=== PATIENT | male | born 1940 | race Caucasian/White ===

== ENCOUNTER → 2017-03-30 | Outpatient (CLI) | payer MEDICARE, OTHER ==
[~2017-03-30] MED LIST: ACTICIN 5% CREA60 G1 TOP; ALDACTONE50 MG PO; AMBIEN 5 MG TABL5 M1 PO; ASPIR 8181 MG PO; AUGMENTIN 875875 MG PO; CEFPODOXIME PR200 M1 PO; GABAPENTIN100 MG PO; HYDROXYZINE HCL25 M1 PO; IPRAT-ALBUT 0.5-3 ML INH; LASIX 40 MG TAB40 M2 PO; LEVAQUIN 250 M250 MG PO; LEVAQUIN 500 M500 M2 PO; LORATIDINE 10 M10 M1 PO; MEDROLDOSEPACK PO; MELOXICAM15 MG PO; METFORMIN HCL500 MG PO; METOPROLOL SUCC50 MG PO; MUCINEX TA600 MG/TA2 PO; NEBULIZER MISCELL; NEURONTIN 300300 M1 PO; PREDNISONE 10 M10 MG PO; PROBIOTIC1 EAC1 PO; PROTONIX40 M1 PO; SIMVASTATIN40 MG PO; SYMBICORT160 MCG/4. INH; TRIAMCINOLONE A80 G2 TOP; TRIAMTERENE-HC1 EAC1 PO; TYLENOL EXTRA500 MG PO
== END ==
LOC: M.WC 01:31
DX: E11.622 Type 2 diabetes mellitus with other skin ulcer (principal); I87.333 Chronic venous hypertension (idiopathic) with ulcer and inflammation of bilateral lower extremity; L97.811 Non-pressure chronic ulcer of other part of right lower leg limited to breakdown of skin; L97.821 Non-pressure chronic ulcer of other part of left lower leg limited to breakdown of skin; E11.51 Type 2 diabetes mellitus with diabetic peripheral angiopathy without gangrene; E78.2 Mixed hyperlipidemia; I10 Essential (primary) hypertension; J44.9 Chronic obstructive pulmonary disease, unspecified; G47.00 Insomnia, unspecified; Z87.891 Personal history of nicotine dependence

== ENCOUNTER → 2017-04-07 | Outpatient (CLI) | payer MEDICARE, BC | LOC: M.WC 02:22 | DX: E11.622 Type 2 diabetes mellitus with other skin ulcer (principal); I87.333 Chronic venous hypertension (idiopathic) with ulcer and inflammation of bilateral lower extremity; L97.811 Non-pressure chronic ulcer of other part of right lower leg limited to breakdown of skin; L97.821 Non-pressure chronic ulcer of other part of left lower leg limited to breakdown of skin; E11.51 Type 2 diabetes mellitus with diabetic peripheral angiopathy without gangrene; E78.2 Mixed hyperlipidemia; J44.9 Chronic obstructive pulmonary disease, unspecified; G47.00 Insomnia, unspecified; Z87.891 Personal history of nicotine dependence ==

== ENCOUNTER → 2017-04-14 | Outpatient (CLI) | payer MEDICARE, BC | LOC: M.WC 01:21 | DX: E11.622 Type 2 diabetes mellitus with other skin ulcer (principal); I87.333 Chronic venous hypertension (idiopathic) with ulcer and inflammation of bilateral lower extremity; L97.821 Non-pressure chronic ulcer of other part of left lower leg limited to breakdown of skin; L97.811 Non-pressure chronic ulcer of other part of right lower leg limited to breakdown of skin; E11.51 Type 2 diabetes mellitus with diabetic peripheral angiopathy without gangrene; E78.2 Mixed hyperlipidemia; G47.00 Insomnia, unspecified; J44.9 Chronic obstructive pulmonary disease, unspecified; E66.9 Obesity, unspecified; Z68.38 Body mass index [BMI] 38.0-38.9, adult; Z87.891 Personal history of nicotine dependence ==

== ENCOUNTER → 2017-04-21 | Outpatient (CLI) | payer MEDICARE, BC | LOC: M.WC 01:36 | DX: E11.622 Type 2 diabetes mellitus with other skin ulcer (principal); L97.821 Non-pressure chronic ulcer of other part of left lower leg limited to breakdown of skin; L97.811 Non-pressure chronic ulcer of other part of right lower leg limited to breakdown of skin; E11.51 Type 2 diabetes mellitus with diabetic peripheral angiopathy without gangrene; I87.333 Chronic venous hypertension (idiopathic) with ulcer and inflammation of bilateral lower extremity; E78.2 Mixed hyperlipidemia; J44.9 Chronic obstructive pulmonary disease, unspecified; Z68.38 Body mass index [BMI] 38.0-38.9, adult; Z86.711 Personal history of pulmonary embolism; Z87.891 Personal history of nicotine dependence ==

== ENCOUNTER → 2017-04-28 | Outpatient (CLI) | payer MEDICARE, BC | LOC: M.WC 01:49 | DX: E11.622 Type 2 diabetes mellitus with other skin ulcer (principal); I87.333 Chronic venous hypertension (idiopathic) with ulcer and inflammation of bilateral lower extremity; L97.821 Non-pressure chronic ulcer of other part of left lower leg limited to breakdown of skin; L97.811 Non-pressure chronic ulcer of other part of right lower leg limited to breakdown of skin; E11.51 Type 2 diabetes mellitus with diabetic peripheral angiopathy without gangrene; E78.2 Mixed hyperlipidemia; J44.9 Chronic obstructive pulmonary disease, unspecified; Z87.891 Personal history of nicotine dependence ==

== ENCOUNTER → 2017-05-05 | Outpatient (CLI) | payer MEDICARE, BC | LOC: M.WC 01:41 | DX: E11.622 Type 2 diabetes mellitus with other skin ulcer (principal); L97.811 Non-pressure chronic ulcer of other part of right lower leg limited to breakdown of skin; L97.821 Non-pressure chronic ulcer of other part of left lower leg limited to breakdown of skin; I87.333 Chronic venous hypertension (idiopathic) with ulcer and inflammation of bilateral lower extremity; E11.51 Type 2 diabetes mellitus with diabetic peripheral angiopathy without gangrene; E78.2 Mixed hyperlipidemia; J44.9 Chronic obstructive pulmonary disease, unspecified; Z68.38 Body mass index [BMI] 38.0-38.9, adult; Z87.891 Personal history of nicotine dependence ==

== ENCOUNTER → 2017-05-12 | Outpatient (CLI) | payer MEDICARE, BC | LOC: M.WC 01:30 | DX: E11.622 Type 2 diabetes mellitus with other skin ulcer (principal); I87.333 Chronic venous hypertension (idiopathic) with ulcer and inflammation of bilateral lower extremity; L97.821 Non-pressure chronic ulcer of other part of left lower leg limited to breakdown of skin; L97.811 Non-pressure chronic ulcer of other part of right lower leg limited to breakdown of skin; E11.51 Type 2 diabetes mellitus with diabetic peripheral angiopathy without gangrene; E78.2 Mixed hyperlipidemia; G47.00 Insomnia, unspecified; J44.9 Chronic obstructive pulmonary disease, unspecified; E66.9 Obesity, unspecified; Z68.38 Body mass index [BMI] 38.0-38.9, adult; Z87.891 Personal history of nicotine dependence ==

== ENCOUNTER → 2017-05-19 | Outpatient (CLI) | payer MEDICARE, BC | LOC: M.WC 00:54 | DX: E11.622 Type 2 diabetes mellitus with other skin ulcer (principal); I87.333 Chronic venous hypertension (idiopathic) with ulcer and inflammation of bilateral lower extremity; L97.811 Non-pressure chronic ulcer of other part of right lower leg limited to breakdown of skin; L97.821 Non-pressure chronic ulcer of other part of left lower leg limited to breakdown of skin; E11.51 Type 2 diabetes mellitus with diabetic peripheral angiopathy without gangrene; E78.2 Mixed hyperlipidemia; J44.9 Chronic obstructive pulmonary disease, unspecified; G47.00 Insomnia, unspecified; Z87.891 Personal history of nicotine dependence ==

== ENCOUNTER → 2017-05-26 | Outpatient (CLI) | payer MEDICARE, BC | LOC: M.WC 00:38 | DX: E11.622 Type 2 diabetes mellitus with other skin ulcer (principal); L97.821 Non-pressure chronic ulcer of other part of left lower leg limited to breakdown of skin; L97.811 Non-pressure chronic ulcer of other part of right lower leg limited to breakdown of skin; I87.333 Chronic venous hypertension (idiopathic) with ulcer and inflammation of bilateral lower extremity; E11.51 Type 2 diabetes mellitus with diabetic peripheral angiopathy without gangrene; E78.2 Mixed hyperlipidemia; J44.9 Chronic obstructive pulmonary disease, unspecified; G47.00 Insomnia, unspecified; Z87.891 Personal history of nicotine dependence ==

== ENCOUNTER → 2017-06-02 | Outpatient (CLI) | payer MEDICARE, BC | LOC: M.WC 01:32 | DX: I87.333 Chronic venous hypertension (idiopathic) with ulcer and inflammation of bilateral lower extremity (principal); L97.821 Non-pressure chronic ulcer of other part of left lower leg limited to breakdown of skin; L97.811 Non-pressure chronic ulcer of other part of right lower leg limited to breakdown of skin; E11.51 Type 2 diabetes mellitus with diabetic peripheral angiopathy without gangrene; E78.2 Mixed hyperlipidemia; I10 Essential (primary) hypertension; G47.00 Insomnia, unspecified; J44.9 Chronic obstructive pulmonary disease, unspecified; Z87.891 Personal history of nicotine dependence ==

== ENCOUNTER → 2017-06-09 | Outpatient (CLI) | payer MEDICARE, BC | LOC: M.WC 01:49 | DX: E11.622 Type 2 diabetes mellitus with other skin ulcer (principal); L97.821 Non-pressure chronic ulcer of other part of left lower leg limited to breakdown of skin; L97.811 Non-pressure chronic ulcer of other part of right lower leg limited to breakdown of skin; I87.333 Chronic venous hypertension (idiopathic) with ulcer and inflammation of bilateral lower extremity; S81.801D Unspecified open wound, right lower leg, subsequent encounter; E11.51 Type 2 diabetes mellitus with diabetic peripheral angiopathy without gangrene; E78.2 Mixed hyperlipidemia; G47.00 Insomnia, unspecified; J44.9 Chronic obstructive pulmonary disease, unspecified; Z68.38 Body mass index [BMI] 38.0-38.9, adult; Z87.891 Personal history of nicotine dependence; X58.XXXD Exposure to other specified factors, subsequent encounter ==

== ENCOUNTER → 2017-06-16 | Outpatient (CLI) | payer MEDICARE, BC | LOC: M.WC 01:34 | DX: I87.331 Chronic venous hypertension (idiopathic) with ulcer and inflammation of right lower extremity (principal); E11.622 Type 2 diabetes mellitus with other skin ulcer; L97.811 Non-pressure chronic ulcer of other part of right lower leg limited to breakdown of skin; E11.51 Type 2 diabetes mellitus with diabetic peripheral angiopathy without gangrene; E78.2 Mixed hyperlipidemia; J44.9 Chronic obstructive pulmonary disease, unspecified; G47.00 Insomnia, unspecified; Z68.38 Body mass index [BMI] 38.0-38.9, adult; Z87.891 Personal history of nicotine dependence ==

== ENCOUNTER → 2017-06-23 | Outpatient (CLI) | payer MEDICARE, BC | LOC: M.WC 01:28 | DX: E11.622 Type 2 diabetes mellitus with other skin ulcer (principal); I87.311 Chronic venous hypertension (idiopathic) with ulcer of right lower extremity; L97.811 Non-pressure chronic ulcer of other part of right lower leg limited to breakdown of skin; E11.51 Type 2 diabetes mellitus with diabetic peripheral angiopathy without gangrene; E78.2 Mixed hyperlipidemia; I10 Essential (primary) hypertension; J44.9 Chronic obstructive pulmonary disease, unspecified; G47.00 Insomnia, unspecified; Z68.38 Body mass index [BMI] 38.0-38.9, adult; Z87.891 Personal history of nicotine dependence; E66.9 Obesity, unspecified ==

== ENCOUNTER → 2017-07-04 | Outpatient (CLI) | payer MEDICARE, BC | LOC: M.WC 02:57 | DX: E11.622 Type 2 diabetes mellitus with other skin ulcer (principal); I87.313 Chronic venous hypertension (idiopathic) with ulcer of bilateral lower extremity; L97.821 Non-pressure chronic ulcer of other part of left lower leg limited to breakdown of skin; L97.811 Non-pressure chronic ulcer of other part of right lower leg limited to breakdown of skin; E11.65 Type 2 diabetes mellitus with hyperglycemia; I89.0 Lymphedema, not elsewhere classified; I11.0 Hypertensive heart disease with heart failure; I50.22 Chronic systolic (congestive) heart failure; E78.2 Mixed hyperlipidemia; J44.9 Chronic obstructive pulmonary disease, unspecified; Z87.891 Personal history of nicotine dependence ==

== ENCOUNTER → 2017-07-07 | Outpatient (CLI) | payer MEDICARE, BC | LOC: M.WC 00:44 | DX: E11.622 Type 2 diabetes mellitus with other skin ulcer (principal); I87.313 Chronic venous hypertension (idiopathic) with ulcer of bilateral lower extremity; L97.821 Non-pressure chronic ulcer of other part of left lower leg limited to breakdown of skin; L97.811 Non-pressure chronic ulcer of other part of right lower leg limited to breakdown of skin; E11.65 Type 2 diabetes mellitus with hyperglycemia; I89.0 Lymphedema, not elsewhere classified; I11.0 Hypertensive heart disease with heart failure; I50.22 Chronic systolic (congestive) heart failure; E78.2 Mixed hyperlipidemia; J44.9 Chronic obstructive pulmonary disease, unspecified; Z87.891 Personal history of nicotine dependence ==

== ENCOUNTER → 2017-07-11 | Outpatient (CLI) | payer MEDICARE, BC | LOC: M.WC 03:06 | DX: E11.622 Type 2 diabetes mellitus with other skin ulcer (principal); L97.811 Non-pressure chronic ulcer of other part of right lower leg limited to breakdown of skin; L97.821 Non-pressure chronic ulcer of other part of left lower leg limited to breakdown of skin; I89.0 Lymphedema, not elsewhere classified; J44.9 Chronic obstructive pulmonary disease, unspecified; Z87.891 Personal history of nicotine dependence ==

== ENCOUNTER → 2017-07-17 | Outpatient (CLI) | payer MEDICARE, BC | LOC: M.WC 01:36 | DX: E11.622 Type 2 diabetes mellitus with other skin ulcer (principal); L97.811 Non-pressure chronic ulcer of other part of right lower leg limited to breakdown of skin; L97.821 Non-pressure chronic ulcer of other part of left lower leg limited to breakdown of skin; E11.65 Type 2 diabetes mellitus with hyperglycemia; I89.0 Lymphedema, not elsewhere classified; I10 Essential (primary) hypertension; I87.2 Venous insufficiency (chronic) (peripheral); J44.9 Chronic obstructive pulmonary disease, unspecified; Z87.891 Personal history of nicotine dependence ==

== ENCOUNTER → 2017-07-25 | Outpatient (CLI) | payer MEDICARE, BC | LOC: M.WC 02:08 | DX: E11.622 Type 2 diabetes mellitus with other skin ulcer (principal); L97.821 Non-pressure chronic ulcer of other part of left lower leg limited to breakdown of skin; L97.811 Non-pressure chronic ulcer of other part of right lower leg limited to breakdown of skin; E11.65 Type 2 diabetes mellitus with hyperglycemia; I89.0 Lymphedema, not elsewhere classified; I10 Essential (primary) hypertension; J44.9 Chronic obstructive pulmonary disease, unspecified; Z87.891 Personal history of nicotine dependence ==

== ENCOUNTER → 2017-08-01 | Outpatient (CLI) | payer MEDICARE, BC | LOC: M.WC 03:33 | DX: E11.622 Type 2 diabetes mellitus with other skin ulcer (principal); L97.811 Non-pressure chronic ulcer of other part of right lower leg limited to breakdown of skin; L97.821 Non-pressure chronic ulcer of other part of left lower leg limited to breakdown of skin; I89.0 Lymphedema, not elsewhere classified; I10 Essential (primary) hypertension; J44.9 Chronic obstructive pulmonary disease, unspecified; Z87.891 Personal history of nicotine dependence ==

== ENCOUNTER → 2017-08-08 | Outpatient (CLI) | payer MEDICARE, BC | LOC: M.WC 03:59 | DX: E11.622 Type 2 diabetes mellitus with other skin ulcer (principal); L97.811 Non-pressure chronic ulcer of other part of right lower leg limited to breakdown of skin; L97.821 Non-pressure chronic ulcer of other part of left lower leg limited to breakdown of skin; I89.0 Lymphedema, not elsewhere classified; I10 Essential (primary) hypertension; I87.2 Venous insufficiency (chronic) (peripheral); J44.9 Chronic obstructive pulmonary disease, unspecified; Z87.891 Personal history of nicotine dependence ==

== ENCOUNTER → 2017-08-15 | Outpatient (CLI) | payer MEDICARE, BC | LOC: M.WC 02:09 | DX: E11.622 Type 2 diabetes mellitus with other skin ulcer (principal); L97.821 Non-pressure chronic ulcer of other part of left lower leg limited to breakdown of skin; L97.811 Non-pressure chronic ulcer of other part of right lower leg limited to breakdown of skin; I87.2 Venous insufficiency (chronic) (peripheral); I10 Essential (primary) hypertension; I89.0 Lymphedema, not elsewhere classified; J44.9 Chronic obstructive pulmonary disease, unspecified; Z87.891 Personal history of nicotine dependence ==

== ENCOUNTER → 2017-08-22 | Outpatient (CLI) | payer MEDICARE, BC | LOC: M.WC 02:09 | DX: E11.622 Type 2 diabetes mellitus with other skin ulcer (principal); L97.821 Non-pressure chronic ulcer of other part of left lower leg limited to breakdown of skin; L97.811 Non-pressure chronic ulcer of other part of right lower leg limited to breakdown of skin; I87.2 Venous insufficiency (chronic) (peripheral); I10 Essential (primary) hypertension; I89.0 Lymphedema, not elsewhere classified; J44.9 Chronic obstructive pulmonary disease, unspecified; Z87.891 Personal history of nicotine dependence ==

== ENCOUNTER 2017-09-21 11:24 | Inpatient (IN) | payer MEDICARE, BC ==
[~2017-09-21] VITALS: Ht 170.2 cm; Wt 111.6 kg
[~2017-09-21 11:24] MED LIST changes: -CEFPODOXIME PR200 M1 PO; -IPRAT-ALBUT 0.5-3 ML INH; -LASIX 40 MG TAB40 M2 PO; -LEVAQUIN 250 M250 MG PO; -LORATIDINE 10 M10 M1 PO; -METFORMIN HCL500 MG PO; -NEURONTIN 300300 M1 PO; -PROTONIX40 M1 PO; -SYMBICORT160 MCG/4. INH
[2017-09-21 11:29] VITALS: BP 137/68
[2017-09-21] MEDS ORDERED: NEURONTIN 300300 M1 PO (11:38)
[2017-09-21] MEDS ORDERED: METFORMIN HCL500 MG PO (11:39)
[2017-09-21] MEDS ORDERED: LORATIDINE 10 M10 M1 PO (11:39)
[2017-09-21] MEDS ORDERED: ALDACTONE50 MG PO (11:40)
[2017-09-21] MEDS ORDERED: SYMBICORT160 MCG/4. INH (11:40)
[2017-09-21 12:08] LABS: HEMATOCRIT 38.3 % (42.0-52.0); HEMOGLOBIN 12.5 gm/dL (14.0-18.0); MCH 30.8 pg (26.0-34.0); MCHC 32.6 g/dL (28.0-37.0); MCV 94.5 fL (80.0-100.0); MPV 8.7 fl. (7.2-11.1); NUCLEATED RBCS 0 /100WBC; PLATELET COUNT* 197 thou/uL (150-400); RBC 4.05 mil/uL (4.50-6.00); RDW-CV 15.5 % (10.5-14.5); WBC 11.2 thou/uL (4.0-11.0)
[2017-09-21 12:16] LABS: ANION GAP 10 mmol/L (7-16); BUN 28 mg/dL (7-18); CALCIUM 9.1 mg/dL (8.5-10.1); CHLORIDE 98 mmol/L (98-107); CO2 27 mmol/L (21-32); CREATININE 1.8 mg/dL (0.6-1.3); GLUCOSE 115 mg/dL (70-99); POTASSIUM 5.2 mmol/L (3.5-5.1); SODIUM 135 mmol/L (136-145)
[2017-09-21 12:30] LABS: ALBUMIN 3.1 g/dL (3.4-5.0); ALKALINE PHOSPHATASE 62 U/L (46-116); SGOT 37 U/L (15-37); SGPT 24 U/L (30-65); TOTAL BILIRUBIN 0.9 mg/dL (<0.1-1.0); TOTAL PROTEIN 7.1 g/dL (6.4-8.2); TROPONIN-I LEVEL <0.06 ng/mL (<0.06)
[2017-09-21 12:37] LABS: ABSOLUTE EOSINOPHILS 0.4 thou/uL (0.0-0.7); ABSOLUTE LYMPHOCYTES 1.3 thou/uL (0.8-5.3); ABSOLUTE MONOCYTES 1.1 thou/uL (0.0-1.2); ABSOLUTE NEUTROPHILS 8.3 thou/uL (1.6-8.1); ANISOCYTOSIS 1+; PLATELET ESTIMATE ADEQUATE; POIKILOCYTOSIS 1+
[2017-09-21 17:28] VITALS: BP 123/66
--- NOTE | 2017-09-21 17:53 | NUR ---
PATIENT ADMITTED FROM ER TO ROOM 117. ALERT AND ORIETNED. DENIES PAIN. ADMISSION HISTORY AND ASSESSMENT CHARTED. WEARS O2 2L AT HOME. O2 2L NOW WITH SAT OF 98%. DENIES SOA. WANTS TO SIT UP IN CHAIR FOR DINNER. VSS. ORIENTED TO ROOM AND ENVIROMENT. CALL LIGHT WITHIN REACH. WILL CONTINUE TO MONITOR.
[2017-09-21 18:34] VITALS: BP 131/68
[2017-09-21 20:00] VITALS: BP 92/52
[2017-09-22 04:27] LABS: ABSOLUTE LYMPHOCYTES 0.4 thou/uL (0.8-5.3); ABSOLUTE MONOCYTES 0.1 thou/uL (0.0-1.2); ABSOLUTE NEUTROPHILS 7.7 thou/uL (1.6-8.1); BASOPHILS 0.1 %; HEMATOCRIT 35.3 % (42.0-52.0); HEMOGLOBIN 11.5 gm/dL (14.0-18.0); LYMPHOCYTES 4.6 %; MCH 30.9 pg (26.0-34.0); MCHC 32.6 g/dL (28.0-37.0); MCV 94.9 fL (80.0-100.0); MONOCYTES 1.8 %; MPV 8.8 fl. (7.2-11.1); NUCLEATED RBCS 0 /100WBC; PLATELET COUNT* 179 thou/uL (150-400); POLYS 93.5 %; RBC 3.72 mil/uL (4.50-6.00); RDW-CV 15.3 % (10.5-14.5); WBC 8.2 thou/uL (4.0-11.0)
[2017-09-22 04:52] LABS: CALCIUM 8.8 mg/dL (8.5-10.1); CREATININE 1.5 mg/dL (0.6-1.3); MAGNESIUM 2.2 mg/dL (1.8-2.4); POTASSIUM 4.9 mmol/L (3.5-5.1)
--- NOTE | 2017-09-22 06:51 | NUR ---
Alert and oriented x 4. His lungs have crackles in lower lobes. O2 at 2L n/c which he wears at home and he's getting breathing treatments. His vitals are within normal limits. He needs long O2 tubing when he's up or he desats. He has leg braces for LE edema. He has slept fairly well.
[2017-09-22 08:00] VITALS: BP 127/58
--- NOTE | 2017-09-22 13:40 | EKG ---
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1940 Requested By: Cyndi Nair Order Number: [id number] MD: Darryn Sterling Measurements Intervals [place] Rate: 69 P: 32 KS: 158 QRS: -30 QRSD: 88 T: 6 QT: 387 QTc: 415 Interpretive Statements Sinus rhythm Abnormal R-wave progression, early transition Left ventricular hypertrophy Compared to ECG 07/06/2016 12:11:41 Left ventricular hypertrophy now present Electronically Signed On 09-22-2017 13:39:47 CDT by Darryn Sterling [email or web address] <ELECTRONICALLY SIGNED> By: Darryn Sterling MD, [facility] 09/22/17 1339 1146 1146 Darryn Sterling MD, [facility] /EPI
--- NOTE | 2017-09-22 15:20 | NUR ---
SPOKE WITH PT. HE WAS ALERT AND ORIENTED. STATED HE LIVES ALONE. HE IS INDEPENDENT. 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 HE HAS O2 AND NEBULIZER THROUGH [facility] [place]. HE NORMALLY WEARS 2L/NC. HE USES A CANE. HE SAID HIS SON,EZRA IS SUPPORTIVE. HE MIGHT GO HOME IN AM,HE SAID. HE FEELS BETTER BUT NOT TOTALLY UP TO PAR. CM WILL FOLLOW NEEDED.
[2017-09-22 16:00] VITALS: BP 129/62
--- NOTE | 2017-09-22 18:10 | NUR ---
ALERT AND ORIENTED X4. UP AD INGRID IN ROOM. IV IS PATENT AND SALINE LOCKED. TOLERATING DIET. LOW DOSE SLIDING SCALE INSULIN ACHS. DENIES PAIN AND NAUSEA. VSS ON ROOM AIR. HOURLY ROUNDS HAVE BEEN MAINTAINED THROUGHOUT SHIFT. CALL LIGHT IS WITHIN REACH. NURSING WILL CONTINUE TO MONITOR.
[2017-09-22 20:00] VITALS: BP 120/53
[2017-09-23 03:58] LABS: HEMATOCRIT 35.3 % (42.0-52.0); HEMOGLOBIN 11.3 gm/dL (14.0-18.0); MCH 30.4 pg (26.0-34.0); MCHC 32.1 g/dL (28.0-37.0); MCV 94.8 fL (80.0-100.0); MPV 9.1 fl. (7.2-11.1); NUCLEATED RBCS 0 /100WBC; PLATELET COUNT* 193 thou/uL (150-400); RBC 3.72 mil/uL (4.50-6.00); WBC 17.2 thou/uL (4.0-11.0)
[2017-09-23 04:47] LABS: ALBUMIN 2.7 g/dL (3.4-5.0); CALCIUM 9.1 mg/dL (8.5-10.1); CREATININE 1.4 mg/dL (0.6-1.3); POTASSIUM 4.9 mmol/L (3.5-5.1); TOTAL BILIRUBIN 0.3 mg/dL (<0.1-1.0); TOTAL PROTEIN 6.4 g/dL (6.4-8.2)
[2017-09-23 05:59] VITALS: BP 114/61
--- NOTE | 2017-09-23 06:17 | NUR ---
ALERT AND ORIENTED X4. UP AD INGRID IN ROOM. DENIES NEED FOR PAIN MEDICATION. HAS NONPRODUCTIVE COUGH. ON O2 AT 2L/NC WITH O2 SAT IN 90'S. CONTINUES TO RECEIVE BREATHING TREATMENTS, IV ANTIBIODICS, AND IV STEROIDS. CALL LIGHT WITHIN REACH.
[2017-09-23 07:08] LABS: ABSOLUTE LYMPHOCYTES 0.5 thou/uL (0.8-5.3); ABSOLUTE MONOCYTES 1.4 thou/uL (0.0-1.2); ABSOLUTE NEUTROPHILS 15.3 thou/uL (1.6-8.1)
[2017-09-23 07:09] LABS: PLATELET ESTIMATE ADEQUATE
[2017-09-23 16:00] VITALS: BP 120/54
--- NOTE | 2017-09-23 18:35 | NUR ---
ALERT AND ORIENTED X4. UP AD INGRID IN ROOM. IV IS PATENT AND SALINE LOCKED. IV ANTIBIOTICS THIS AM. DENIES PAIN AND NAUSEA. TOLERATING DIET. VSS ON 2L O2. HOURLY ROUNDS HAVE BEEN MAINTAINED THROUGHOUT SHIFT. CALL LIGHT IS WITHIN REACH. NURSING WILL CONTINUE TO MONITOR.
[2017-09-23 21:30] VITALS: BP 133/55
[2017-09-24 04:20] LABS: ABSOLUTE LYMPHOCYTES 0.3 thou/uL (0.8-5.3); ABSOLUTE MONOCYTES 0.7 thou/uL (0.0-1.2); ABSOLUTE NEUTROPHILS 14.8 thou/uL (1.6-8.1); BASOPHILS 0.1 %; HEMATOCRIT 35.6 % (42.0-52.0); HEMOGLOBIN 11.3 gm/dL (14.0-18.0); LYMPHOCYTES 2.1 %; MCH 30.4 pg (26.0-34.0); MCHC 31.8 g/dL (28.0-37.0); MCV 95.5 fL (80.0-100.0); MONOCYTES 4.2 %; MPV 9.1 fl. (7.2-11.1); NUCLEATED RBCS 0 /100WBC; PLATELET COUNT* 198 thou/uL (150-400); POLYS 93.6 %; RBC 3.73 mil/uL (4.50-6.00); RDW-CV 15.1 % (10.5-14.5); WBC 15.9 thou/uL (4.0-11.0)
[2017-09-24 04:59] LABS: ALBUMIN 2.6 g/dL (3.4-5.0); CALCIUM 8.8 mg/dL (8.5-10.1); CREATININE 1.4 mg/dL (0.6-1.3); TOTAL BILIRUBIN 0.3 mg/dL (<0.1-1.0); TOTAL PROTEIN 6.2 g/dL (6.4-8.2)
[2017-09-24 05:05] LABS: PREALBUMIN 16.4 mg/dL (18.0-35.7)
--- NOTE | 2017-09-24 06:29 | NUR ---
UP AD INGRID FOR SHORT DISTANCES IN ROOM. REMAINS ON O2 AT 2L/NC WITH O2 SAT IN 90'S. LUNG SOUNDS CONTINUE TO HAVE CRACKLES IN BASES. HAS NONPRODUCTIVE COUGH. CONTINUES TO RECEIVE BREATHING TREATMENTS AND IV STEROIDS. DENIES PAIN OR NAUSEA. CALL LIGHT WITHIN REACH
[2017-09-24 08:47] VITALS: BP 137/65
[2017-09-24 16:00] VITALS: BP 145/65
--- NOTE | 2017-09-24 17:16 | NUR ---
ASSUMED CARE OF PATIENT AFTER MORNING REPORT. ALERT AND ORIENTED X4. ASSESSMENT COMPLETED AND CHARTED. VSS ON 2 LITERS 02. ANTIBIOTICS INFUSED AND SOLUMEDROL GIVEN ORDERED. RT ADMINISTERED BREATNG TREATMENTS ORDERED. PATIENT HAS HAD NO COMPLAINTS OF PAIN OR SOA THIS SHIFT. PATIENT UP IN THE CHAIR THROUGHOUT SHIFT. COMPRESSION LEG WRAPS APPLIED THIS AM AND REMIANED IN PLACE THROUGHOUT THE SHIFT. HOURLY ROUNDS MAINTAINED, CALL LIGHT IN REACH, NURSING WILL CONTINUE TO MONITOR.
[2017-09-25 04:15] LABS: ABSOLUTE BASOPHILS 0.1 thou/uL (0.0-0.2); ABSOLUTE LYMPHOCYTES 0.4 thou/uL (0.8-5.3); ABSOLUTE MONOCYTES 0.5 thou/uL (0.0-1.2); ABSOLUTE NEUTROPHILS 13.7 thou/uL (1.6-8.1); BASOPHILS 0.4 %; EOSINOPHILS 0.2 %; HEMATOCRIT 38.2 % (42.0-52.0); MCH 30.3 pg (26.0-34.0); MCHC 31.5 g/dL (28.0-37.0); MCV 96.1 fL (80.0-100.0); MONOCYTES 3.2 %; MPV 9.2 fl. (7.2-11.1); NUCLEATED RBCS 0 /100WBC; PLATELET COUNT* 202 thou/uL (150-400); POLYS 93.2 %; RBC 3.97 mil/uL (4.50-6.00); RDW-CV 15.1 % (10.5-14.5); WBC 14.7 thou/uL (4.0-11.0)
[2017-09-25 04:29] LABS: ALBUMIN 2.8 g/dL (3.4-5.0); CALCIUM 8.8 mg/dL (8.5-10.1); CREATININE 1.5 mg/dL (0.6-1.3); POTASSIUM 5.5 mmol/L (3.5-5.1); TOTAL BILIRUBIN 0.3 mg/dL (<0.1-1.0); TOTAL PROTEIN 6.5 g/dL (6.4-8.2)
[2017-09-25 04:34] LABS: PREALBUMIN 19.8 mg/dL (18.0-35.7)
--- NOTE | 2017-09-25 06:19 | NUR ---
PT ALERT AND ORIENTED THIS MORNING, PT SLEPT IN RECLINER CHAIR DURING THE NIGHT WITH SCDS IN PLACE, DENIES PAIN, DENIES COUGH, DENIES SOA THIS MORNING, PT CONTINUES IN RELCINER CHAIR WITH CALL LIGHT WITHIN REACH, SUPPLEMENTAL O2 AT 2L PER NC
[2017-09-25 08:30] VITALS: BP 140/71
--- NOTE | 2017-09-25 09:14 | NUR ---
ASSUMED CARES IN AM. ASSESSMENT PERFORMED AND DOCUMENTED. PT DENIES CONCERNS DID ASK IF PREDINOSE WOULD BE CONTINUE UPON DISCHARGE, LET PT KNOW I WOULD AFTER SPEAKING WITH PHYSCIAN. DENIES PAIN AND DISCOMFORT. PT IS IN CHAIR BREAKFAST IN PLACE AND INSULIN GIVEN. PT STATES SAID HE WOULD BE DISCHARGING. CALL LIGHT IN REACH AND BED IN LOWEST AND LOCKED POSIITON. FALL PRECUATIONS IN PLACE. WILL CONTINUE WITH PLAN OF CARE
[2017-09-25] MEDS ORDERED: PREDNISONE 10 M10 MG PO (09:49)
[2017-09-25] MEDS ORDERED: LASIX 40 MG TAB40 M2 PO (09:50)
[2017-09-25] MEDS ORDERED: CEFPODOXIME PR200 M1 PO (09:52)
[2017-09-25] MEDS ORDERED: PROTONIX40 M1 PO (09:52)
[2017-09-25 10:14] VITALS: BP 140/71
[2017-09-25 14:37] VITALS: BP 140/71
--- NOTE | 2017-09-25 14:39 | NUR ---
PATIENT LEFT UNIT BY WHEELCHAIR WITH NURSING STAFF AT 1440. IV DC'D. EDUCATED PATIENT ON DISCHARGE INSTRUCTIONS AND NEW MED SCRIPTS. PATIENT VERBALIZED UNDERSTANDING.
== END 2017-09-25 14:41 | disposition home or self-care (01) | DRG 177 ==
LOC: M.ERS 11:24 → M.TBA-ER 13:25 → M.ORTHSURG 13:25
PROVIDERS: Physician Assistant; ADMIT Internal Medicine
DX: J15.6 Pneumonia due to other Gram-negative bacteria (principal); J96.20 Acute and chronic respiratory failure, unspecified whether with hypoxia or hypercapnia; J44.1 Chronic obstructive pulmonary disease with (acute) exacerbation; J44.0 Chronic obstructive pulmonary disease with (acute) lower respiratory infection; E87.2 Acidosis; N17.9 Acute kidney failure, unspecified; E87.5 Hyperkalemia; G89.29 Other chronic pain; I12.9 Hypertensive chronic kidney disease with stage 1 through stage 4 chronic kidney disease, or unspecified chronic kidney disease; N18.9 Chronic kidney disease, unspecified; E11.22 Type 2 diabetes mellitus with diabetic chronic kidney disease; E78.00 Pure hypercholesterolemia, unspecified; Z96.643 Presence of artificial hip joint, bilateral; Z96.653 Presence of artificial knee joint, bilateral; Z79.82 Long term (current) use of aspirin; Z99.81 Dependence on supplemental oxygen; Z79.899 Other long term (current) drug therapy; Z79.84 Long term (current) use of oral hypoglycemic drugs; Z87.01 Personal history of pneumonia (recurrent); Z88.8 Allergy status to other drugs, medicaments and biological substances

== ENCOUNTER 2017-10-13 19:26 | Inpatient (IN) | payer MEDICARE, BC ==
[~2017-10-13] VITALS: Ht 172.7 cm; Wt 107.1 kg
[~2017-10-13 19:26] MED LIST changes: +CEFPODOXIME PR200 M1 PO; +LASIX 40 MG TAB40 M2 PO; +LORATIDINE 10 M10 M1 PO; +METFORMIN HCL500 MG PO; +NEURONTIN 300300 M1 PO; +PROTONIX40 M1 PO; +SYMBICORT160 MCG/4. INH
[2017-10-13 19:33] VITALS: BP 117/58
[2017-10-13 20:15] LABS: ABSOLUTE BASOPHILS 0.1 thou/uL (0.0-0.2); ABSOLUTE EOSINOPHILS 0.2 thou/uL (0.0-0.7); ABSOLUTE LYMPHOCYTES 1.2 thou/uL (0.8-5.3); ABSOLUTE MONOCYTES 0.8 thou/uL (0.0-1.2); ABSOLUTE NEUTROPHILS 5.1 thou/uL (1.6-8.1); BASOPHILS 1.2 %; EOSINOPHILS 2.6 %; HEMATOCRIT 36.3 % (42.0-52.0); HEMOGLOBIN 12.1 gm/dL (14.0-18.0); LYMPHOCYTES 16.3 %; MCH 31.1 pg (26.0-34.0); MCHC 33.2 g/dL (28.0-37.0); MCV 93.7 fL (80.0-100.0); MONOCYTES 11.1 %; MPV 8.9 fl. (7.2-11.1); NUCLEATED RBCS 0 /100WBC; PLATELET COUNT* 116 thou/uL (150-400); POLYS 68.8 %; RBC 3.87 mil/uL (4.50-6.00); RDW-CV 15.8 % (10.5-14.5); WBC 7.4 thou/uL (4.0-11.0)
[2017-10-13 20:22] LABS: CALCIUM 8.7 mg/dL (8.5-10.1); CREATININE 1.6 mg/dL (0.6-1.3); POTASSIUM 3.3 mmol/L (3.5-5.1)
[2017-10-13 20:33] LABS: ALBUMIN 2.8 g/dL (3.4-5.0); TOTAL BILIRUBIN 0.9 mg/dL (<0.1-1.0); TOTAL PROTEIN 6.1 g/dL (6.4-8.2)
[2017-10-13 22:26] VITALS: BP 116/79
[2017-10-14 03:51] VITALS: BP 123/64
[2017-10-14 08:03] VITALS: BP 137/81
[2017-10-14 12:54] VITALS: BP 126/72
[2017-10-14 16:43] VITALS: BP 112/72
[2017-10-14 22:51] VITALS: BP 107/66
[2017-10-15] VITALS: BP 107/67
[2017-10-15 04:00] VITALS: BP 111/73
[2017-10-15 04:35] LABS: HEMATOCRIT 38.5 % (42.0-52.0); HEMOGLOBIN 12.6 gm/dL (14.0-18.0); MCHC 32.7 g/dL (28.0-37.0); MCV 94.7 fL (80.0-100.0); MPV 9.1 fl. (7.2-11.1); RBC 4.06 mil/uL (4.50-6.00); RDW-CV 15.3 % (10.5-14.5); WBC 10.6 thou/uL (4.0-11.0)
[2017-10-15 05:10] LABS: CALCIUM 8.8 mg/dL (8.5-10.1); CREATININE 1.9 mg/dL (0.6-1.3); MAGNESIUM 1.7 mg/dL (1.8-2.4); POTASSIUM 3.2 mmol/L (3.5-5.1)
[2017-10-15 07:51] VITALS: BP 122/69
[2017-10-15 11:23] VITALS: BP 115/63
[2017-10-15 12:31] LABS: MAGNESIUM 1.6 mg/dL (1.8-2.4); POTASSIUM 4.1 mmol/L (3.5-5.1)
[2017-10-15 15:54] VITALS: BP 140/77
[2017-10-15 20:08] VITALS: BP 120/69
[2017-10-16] VITALS: BP 126/66
[2017-10-16 03:40] VITALS: BP 127/65
[2017-10-16 04:50] LABS: HEMATOCRIT 36.4 % (42.0-52.0); HEMOGLOBIN 11.7 gm/dL (14.0-18.0); MCH 30.6 pg (26.0-34.0); MCHC 32.1 g/dL (28.0-37.0); MCV 95.3 fL (80.0-100.0); MPV 9.2 fl. (7.2-11.1); RBC 3.82 mil/uL (4.50-6.00); RDW-CV 15.7 % (10.5-14.5); WBC 11.1 thou/uL (4.0-11.0)
[2017-10-16 04:58] LABS: CALCIUM 8.6 mg/dL (8.5-10.1); CREATININE 1.9 mg/dL (0.6-1.3); MAGNESIUM 1.8 mg/dL (1.8-2.4); POTASSIUM 4.9 mmol/L (3.5-5.1)
[2017-10-16 08:00] VITALS: BP 119/57
--- NOTE | 2017-10-16 11:08 | EKG ---
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 10/16/17 1108 33 33 Darryn Sterling MD, [facility] /EPI
[2017-10-16 13:10] VITALS: BP 108/64
[2017-10-16 16:04] VITALS: BP 161/74
[2017-10-16 20:00] VITALS: BP 136/68
[2017-10-17] VITALS: BP 132/77
[2017-10-17 04:00] VITALS: BP 154/80
[2017-10-17 04:58] LABS: HEMATOCRIT 37.3 % (42.0-52.0); MCH 30.8 pg (26.0-34.0); MCHC 32.3 g/dL (28.0-37.0); MCV 95.2 fL (80.0-100.0); RBC 3.91 mil/uL (4.50-6.00); RDW-CV 15.5 % (10.5-14.5); WBC 11.1 thou/uL (4.0-11.0)
[2017-10-17 05:21] LABS: CALCIUM 8.8 mg/dL (8.5-10.1); CREATININE 1.7 mg/dL (0.6-1.3); POTASSIUM 4.5 mmol/L (3.5-5.1)
[2017-10-17 08:18] VITALS: BP 122/68
[2017-10-17] MEDS ORDERED: LEVAQUIN 250 M250 MG PO (11:08)
[2017-10-17] MEDS ORDERED: PREDNISONE 10 M10 MG PO (11:08)
[2017-10-17] MEDS ORDERED: NEBULIZER MISCELL (11:08)
[2017-10-17] MEDS ORDERED: IPRAT-ALBUT 0.5-3 ML INH (11:08)
[2017-10-17 12:00] VITALS: BP 121/67
--- NOTE | 2017-10-17 13:20 | 2DMMODE ---
[place] [address] 2 D/M-MODE ECHOCARDIOGRAM Name: RUPA KENNEDY Room: [facility] IN [facility]#: [id number] Admission: 10/13/17 Attend Phys: Omi Westbrook Discharge: Date of : 44 Date of Service: 10/17/17 1320 Report #: [id number] THIS REPORT FOR: //name// APPROVED REPORT Study performed: 10/17/2017 10:39:40 EXAM: Comprehensive 2D, Doppler, and color-flow Echocardiogram Patient Location: In-Patient Room #: 218 Status: routine BSA: 2.18 HR: 87 bpm BP: 122/68 mmHg Rhythm: NSR Other Information Study Quality: Good Indications Congestive Heart Failure 2D Dimensions LVEF(%): 75.67 (>50%) IVSd: 12.10 (7-11mm) LVOT Diam: 21.28 (18-24mm) LVDd: 45.58 mm PWd: 10.10 (7-11mm) Ascending Ao: 34.89 (22-36mm) LVDs: 25.38 (25-40mm) Aortic Root: 38.29 mm Lloyd's LVEF: 75.67 % Volumes Left Atrial Volume (Systole) LA ESV Index: 22.70 mL/m2 Aortic Valve AoV Peak Kian.: 1.83 m/s AO Peak Gr.: 13.44 mmHg LVOT Max P.04 mmHg AO Mean Gr.: 7.03 mmHg LVOT Mean P.06 mmHg LVOT Max V: 1.42 m/s AO V2 VTI: 31.64 cm LVOT Mean V: 0.92 m/s SHAVON (VTI): 3.16 cm2 LVOT V1 VTI: 28.14 cm Mitral Valve E/A Ratio: 0.54 [place] [address] 2 D/M-MODE ECHOCARDIOGRAM Name: RUPA KENNEDY Room: [address] IN .R.#: [id number] Admission: 10/13/17 Attend Phys: Omi Westbrook Discharge: Date of : 44 Date of Service: 10/17/17 1320 Report #: [id number] MV Decel. Time: 250.70 ms MV E Max Kian.: 0.86 m/s MV PHT: 72.70 ms MVA (PHT): 3.03 cm2 TDI E/Lateral E': 10.75 E/Medial E': 12.29 Medial E' Kian.: 0.07 m/s Lateral E' Kian.: 0.08 m/s Pulmonary Valve PV Peak Kian.: 1.25 m/s PV Peak Gr.: 6.22 mmHg Tricuspid Valve RAP Estimate: 5.00 mmHg TR Peak Gr.: 36.75 mmHg RVSP: 41.75 mmHg PA Pressure: 41.75 mmHg Left Ventricle The left ventricle is normal size. There is normal LV segmental wall motion. There is normal left ventricular wall thickness. Left ventricular systolic function is normal. LVEF is 65-70%. Grade I - abnormal relaxation pattern. Right Ventricle The right ventricle is normal size. The right ventricular systolic function is normal. Atria Left atrium is mildly dilated. Right atrium is mildly dilated. Aortic Valve Mild aortic valve sclerosis. No aortic regurgitation is present. There is no aortic valvular stenosis. Mitral Valve The mitral valve is normal in structure. There is no mitral valve regurgitation noted. No evidence of mitral valve stenosis. Tricuspid Valve The tricuspid valve is normal in structure. Trace tricuspid regurgitation. The RVSP is 40-45 mmHg. Pulmonic Valve The pulmonary valve is normal in structure. [place] [address] 2 D/M-MODE ECHOCARDIOGRAM Name: RUPA KENNEDY Room: [address] IN [facility]#: [id number] Admission: 10/13/17 Attend Phys: Omi Westbrook Discharge: Date of : 44 Date of Service: 10/17/17 1320 Report #: [id number] valvular regurgitation. Great Vessels The aortic root is normal in size. IVC is normal in size and collapses with >50% inspiration Pericardium There is no pericardial effusion. <Conclusion> The left ventricle is normal size. There is normal left ventricular wall thickness. Left ventricular systolic function is normal. LVEF is 65-70%. Grade I - abnormal relaxation pattern. Left atrium is mildly dilated. Right atrium is mildly dilated. Trace tricuspid regurgitation. The RVSP is 40-45 mmHg. <ELECTRONICALLY SIGNED> By: Sheldon Mckinnon MD, FACC 10/17/17 1320 1320 1320 Sheldon Mckinnon MD, FACC /INF
== END 2017-10-17 14:30 | disposition home or self-care (01) | DRG 177 ==
LOC: M.ERS 19:26 → M.2W 21:12 → M.TBA-ER 21:12 → M.2W 22:40
PROVIDERS: Internal Medicine; Nurse Practitioner; ADMIT Internal Medicine
DX: J15.6 Pneumonia due to other Gram-negative bacteria (principal); I50.33 Acute on chronic diastolic (congestive) heart failure; J96.01 Acute respiratory failure with hypoxia; J44.1 Chronic obstructive pulmonary disease with (acute) exacerbation; J84.9 Interstitial pulmonary disease, unspecified; J44.0 Chronic obstructive pulmonary disease with (acute) lower respiratory infection; M19.90 Unspecified osteoarthritis, unspecified site; E78.00 Pure hypercholesterolemia, unspecified; I11.0 Hypertensive heart disease with heart failure; Z96.643 Presence of artificial hip joint, bilateral; Z96.653 Presence of artificial knee joint, bilateral; Z79.2 Long term (current) use of antibiotics; Z79.52 Long term (current) use of systemic steroids; Z79.899 Other long term (current) drug therapy; Z79.82 Long term (current) use of aspirin; Z88.8 Allergy status to other drugs, medicaments and biological substances; Z87.891 Personal history of nicotine dependence; Z82.49 Family history of ischemic heart disease and other diseases of the circulatory system

== ENCOUNTER → 2019-04-22 | Outpatient (CLI) | payer MEDICARE, BC ==
[~2019-04-22] MED LIST changes: +IPRAT-ALBUT 0.5-3 ML INH; +LEVAQUIN 250 M250 MG PO
--- NOTE | 2019-04-22 13:14 | 2DMMODE ---
[place] [address] 2 D/M-MODE ECHOCARDIOGRAM Name: RUPA KENNEDY Room: [facility]#: [id number] Admission: 04/22/19 Attend Phys: Physician not on s Discharge: Date of : 44 Date of Service: 04/22/19 1314 Report #: [id number] THIS REPORT FOR: //name// APPROVED REPORT Study performed: 04/22/2019 08:56:12 EXAM: Comprehensive 2D, Doppler, and color-flow Echocardiogram Patient Location: Out-Patient BSA: 2.09 HR: 65 bpm BP: 120/70 mmHg Other Information Study Quality: Fair Indications COPD Pulmonary Hypertension 2D Dimensions IVSd: 11.58 (7-11mm) LVOT Diam: 21.42 (18-24mm) LVDd: 34.20 mm PWd: 10.82 (7-11mm) Ascending Ao: 28.84 (22-36mm) LVDs: 23.01 (25-40mm) Aortic Root: 18.89 mm Volumes Left Atrial Volume (Systole) LA ESV Index: 15.90 mL/m2 Aortic Valve AoV Peak Kian.: 1.76 m/s AO Peak Gr.: 12.43 mmHg LVOT Max P.63 mmHg AO Mean Gr.: 6.98 mmHg LVOT Mean P.18 mmHg LVOT Max V: 1.08 m/s AO V2 VTI: 34.21 cm LVOT Mean V: 0.68 m/s SHAVON (VTI): 2.37 cm2 LVOT V1 VTI: 22.47 cm Mitral Valve E/A Ratio: 0.47 MV Decel. Time: 466.19 ms MV E Max Kian.: 0.53 m/s MV PHT: 135.19 [place] [address] 2 D/M-MODE ECHOCARDIOGRAM Name: RUPA KENNEDY Room: [facility]#: [id number] Admission: 04/22/19 Attend Phys: Physician not on s Discharge: Date of : 44 Date of Service: 04/22/19 1314 Report #: [id number] MVA (PHT): 1.63 cm2 TDI E/Lateral E': 5.89 E/Medial E': 7.57 Medial E' Kian.: 0.07 m/s Lateral E' Kian.: 0.09 m/s Pulmonary Valve PV Peak Kian.: 0.91 m/s PV Peak Gr.: 3.29 mmHg Tricuspid Valve RAP Estimate: 5.00 mmHg TR Peak Gr.: 36.16 mmHg RVSP: 41.16 mmHg PA Pressure: 41.16 mmHg Left Ventricle The left ventricle is normal size. There is normal LV segmental wall motion. There is normal left ventricular wall thickness. Left ventricular systolic function is normal. The left ventricular ejection fraction is within the normal range. LVEF is 55-60%. Grade I - abnormal relaxation pattern. Right Ventricle The right ventricle is normal size. The right ventricular systolic function is normal. Atria The left atrium size is normal. The right atrium size is normal. Aortic Valve Mild aortic valve sclerosis. No aortic regurgitation is present. There is no aortic valvular stenosis. Mitral Valve The mitral valve is normal in structure. Mild mitral annular calcification. There is trace mitral valve regurgitation noted. No evidence of mitral valve stenosis. Tricuspid Valve The tricuspid valve is normal in structure. Mild tricuspid regurgitation. estimated pa pressure 50 mm Hg Pulmonic Valve Pulmonic valve is not well visualized. There is no pulmonic [place] [address] 2 D/M-MODE ECHOCARDIOGRAM Name: MARCIARUPA Siegel Room: [facility]#: [id number] Admission: 04/22/19 Attend Phys: Physician not on s Discharge: Date of : 44 Date of Service: 04/22/19 1314 Report #: [id number] Great Vessels The aortic root is normal in size. IVC is normal in size and collapses >50% with inspiration. Pericardium There is no pericardial effusion. <Conclusion> LVEF is 55-60%. Mild aortic valve sclerosis. Mild tricuspid regurgitation. estimated pa pressure 50 mm Hg <ELECTRONICALLY SIGNED> By: Darryn Sterling MD, FACC 04/22/191313 13 13 Darryn Sterling MD, FACC /INF
== END ==
LOC: M.CRD 08:51
DX: I08.3 Combined rheumatic disorders of mitral, aortic and tricuspid valves (principal); J84.9 Interstitial pulmonary disease, unspecified; J84.10 Pulmonary fibrosis, unspecified; J44.9 Chronic obstructive pulmonary disease, unspecified; I27.20 Pulmonary hypertension, unspecified

== ENCOUNTER → 2019-06-12 | Outpatient (CLI) | payer MEDICARE, BC ==
[~2019-06-12] MED LIST changes: +BACTRIM DS TAB1 EACH PO; +GLIPIZIDE 10 MG10 MG PO; +GLUCOTROL5 MG PO; +HYDROCODON-ACE1 EAC7 PO; +LIDOPATCH1 EACH TOP; +LYRICA25 MG PO; +MIRALAX17 GM PO; +OFEV100 MG PO; +TESSALON PERLE100 M1 PO; +TRAMADOL 50 MG50 MG PO
== END ==
LOC: M.WC 14:00
DX: E11.622 Type 2 diabetes mellitus with other skin ulcer (principal); L97.512 Non-pressure chronic ulcer of other part of right foot with fat layer exposed; S81.831D Puncture wound without foreign body, right lower leg, subsequent encounter; L03.115 Cellulitis of right lower limb; E11.40 Type 2 diabetes mellitus with diabetic neuropathy, unspecified; E78.5 Hyperlipidemia, unspecified; G47.00 Insomnia, unspecified; I10 Essential (primary) hypertension; I87.2 Venous insufficiency (chronic) (peripheral); J44.9 Chronic obstructive pulmonary disease, unspecified; M19.90 Unspecified osteoarthritis, unspecified site; Z96.659 Presence of unspecified artificial knee joint; Z87.891 Personal history of nicotine dependence; Z96.649 Presence of unspecified artificial hip joint; Z79.82 Long term (current) use of aspirin; X58.XXXD Exposure to other specified factors, subsequent encounter

== ENCOUNTER → 2019-06-19 | Outpatient (CLI) | payer MEDICARE, BC | LOC: M.WC 04:17 | DX: E11.621 Type 2 diabetes mellitus with foot ulcer (principal); L97.812 Non-pressure chronic ulcer of other part of right lower leg with fat layer exposed; S81.831D Puncture wound without foreign body, right lower leg, subsequent encounter; L03.115 Cellulitis of right lower limb; E11.40 Type 2 diabetes mellitus with diabetic neuropathy, unspecified; E78.5 Hyperlipidemia, unspecified; I87.2 Venous insufficiency (chronic) (peripheral); I10 Essential (primary) hypertension; G47.00 Insomnia, unspecified; J44.9 Chronic obstructive pulmonary disease, unspecified; M19.90 Unspecified osteoarthritis, unspecified site; Z96.649 Presence of unspecified artificial hip joint; Z96.659 Presence of unspecified artificial knee joint; Z87.891 Personal history of nicotine dependence; Z79.82 Long term (current) use of aspirin ==